=== PATIENT | female | born 1980 | race African-American/Black ===

== ENCOUNTER 2016-06-22 14:10 | Emergency (ER) | payer MEDICAID ==
[~2016-06-22] VITALS: Ht 170.2 cm; Wt 66.0 kg
[~2016-06-22 14:10] MED LIST: Albuterol; PRO AIR; Q VAR; QVAR80 IH
[2016-06-22 14:26] VITALS: BP 108/50
== END 2016-06-22 15:07 | disposition home or self-care (01) ==
LOC: ER 15:01
DX: R05 Cough (principal); J45.909 Unspecified asthma, uncomplicated; Z91.012 Allergy to eggs; Z91.018 Allergy to other foods; Z79.899 Other long term (current) drug therapy; Z98.890 Other specified postprocedural states
CPT/HCPCS: 99283

== ENCOUNTER 2016-11-15 10:58 | Emergency (ER) | payer MEDICAID ==
[~2016-11-15] VITALS: Ht 170.2 cm; Wt 68.0 kg
[2016-11-15] MEDS ORDERED: IPRATROPIUM BROMIDE (0.02%) 0.5MG/2.5ML NEB HHN ONE (12:15)
[2016-11-15] MEDS ORDERED: METHYLPREDNISOLONE SOD SUCC 40 MG/ML VIAL IM ONE (12:15)
[2016-11-15] MEDS ORDERED: IPRATROPIUM/ALBUTEROL 0.5-3(2.5)MG/3ML NEB HHN ONE (12:45)
[2016-11-15 13:59] VITALS: BP 114/57
== END 2016-11-15 15:09 | disposition home or self-care (01) ==
LOC: ER 14:38
DX: J45.909 Unspecified asthma, uncomplicated (principal); F12.10 Cannabis abuse, uncomplicated; Z91.012 Allergy to eggs; Z91.010 Allergy to peanuts; Z91.013 Allergy to seafood; Z91.018 Allergy to other foods
CPT/HCPCS: 71010; 81025; 96372; 99284; J2920; Z7610; J7620

== ENCOUNTER 2017-01-29 11:43 | Emergency (ER) | payer MEDICAID ==
[~2017-01-29] VITALS: Ht 170.2 cm; Wt 59.0 kg
[2017-01-29] MEDS ORDERED: ALBUTEROL (0.083%) 2.5MG/3ML NEB HHN STA ×2 (13:28→14:32)
[2017-01-29] MEDS ORDERED: METHYLPREDNISOLONE SOD SUCC 125 MG/2 ML VIAL IV STA (13:28)
[2017-01-29] MEDS ORDERED: IPRATROPIUM BROMIDE (0.02%) 0.5MG/2.5ML NEB HHN STA ×2 (13:28→14:32)
[2017-01-29] MEDS ORDERED: SODIUM CHLORIDE 0.9% 1,000 ML IV ONE (13:30)
[2017-01-29 15:55] VITALS: BP 102/54
== END 2017-01-29 15:55 | disposition home or self-care (01) ==
LOC: ER 12:53
DX: J45.901 Unspecified asthma with (acute) exacerbation (principal); K21.9 Gastro-esophageal reflux disease without esophagitis; Z91.012 Allergy to eggs; F12.10 Cannabis abuse, uncomplicated
CPT/HCPCS: 71010; 81025; 94640; 99284; J2930; J7030; J7611; Z7610

== ENCOUNTER 2017-02-15 14:11 | Emergency (ER) | payer MEDICAID ==
[~2017-02-15] VITALS: Ht 170.2 cm; Wt 73.0 kg
[2017-02-15] MEDS ORDERED: PREDNISONE 20MG TABLET PO STA (17:41)
[2017-02-15] MEDS ORDERED: ALBUTEROL (0.083%) 2.5MG/3ML NEB HHN STA (17:41)
[2017-02-15] MEDS ORDERED: IPRATROPIUM BROMIDE (0.02%) 0.5MG/2.5ML NEB HHN STA (17:41)
[2017-02-15 18:47] VITALS: BP 128/73
== END 2017-02-15 18:48 | disposition home or self-care (01) ==
LOC: ER 14:53
DX: J45.901 Unspecified asthma with (acute) exacerbation (principal); J20.9 Acute bronchitis, unspecified; K21.9 Gastro-esophageal reflux disease without esophagitis; F12.10 Cannabis abuse, uncomplicated; Z98.890 Other specified postprocedural states; Z91.012 Allergy to eggs; Z91.013 Allergy to seafood; Z91.018 Allergy to other foods
CPT/HCPCS: 94640; 99283; J7512; J7611

== ENCOUNTER 2024-05-02 13:15 | Emergency (ER) | payer MEDICAID ==
[~2024-05-02] VITALS: Ht 170.2 cm; Wt 67.0 kg
[2024-05-02 13:17] VITALS: PULSE 90; O2SAT 98
[2024-05-02 13:35] VITALS: BP 115/71; RESP 16; TEMP 36.9; O2SAT 98
[2024-05-02] MEDS ORDERED: D-ME473S50 PO (14:49)
[2024-05-02] MEDS ORDERED: ALBU18HF2 IH (14:49)
[2024-05-02] MEDS ORDERED: AMOX1TAB16 MT (14:49)
[2024-05-02] MEDS ORDERED: DOXY100T2 MT (14:49)
== END 2024-05-02 14:56 | disposition home or self-care (01) ==
LOC: ER 13:15
DX: J18.9 Pneumonia, unspecified organism (principal); J98.4 Other disorders of lung; J45.909 Unspecified asthma, uncomplicated; K21.9 Gastro-esophageal reflux disease without esophagitis; F12.90 Cannabis use, unspecified, uncomplicated; F10.90 Alcohol use, unspecified, uncomplicated; Z98.890 Other specified postprocedural states; Z79.51 Long term (current) use of inhaled steroids; Y90.9 Presence of alcohol in blood, level not specified
CPT/HCPCS: 71045; 99283

== ENCOUNTER 2024-09-12 20:48 | Emergency (ER) | payer MEDICAID ==
[~2024-09-12] VITALS: Ht 177.8 cm; Wt 71.0 kg
[~2024-09-12 20:48] MED LIST changes: +ALBU18HF2 IH; +AMOX1TAB16 MT; +D-ME473S50 PO; +DOXY100T2 MT
[2024-09-12 21:27] VITALS: O2SAT 99
[2024-09-13] MEDS ORDERED: ACETAMINOPHEN 325MG TABLET PO ONE (00:15)
[2024-09-13] MEDS: PREDNISONE 20MG TABLET PO ONE (00:55)
[2024-09-13] MEDS: FAMOTIDINE 20MG TABLET PO ONE (00:55)
[2024-09-13] MEDS: DIPHENHYDRAMINE 25MG CAPSULE PO ONE (00:55)
[2024-09-13] MEDS ORDERED: P20 MT (02:08)
[2024-09-13 02:58] VITALS: BP 96/69; PULSE 66; RESP 13; TEMP 36.7; O2SAT 99
== END 2024-09-13 03:00 | disposition home or self-care (01) ==
LOC: ER 20:48
DX: L23.9 Allergic contact dermatitis, unspecified cause (principal); J45.909 Unspecified asthma, uncomplicated; F12.90 Cannabis use, unspecified, uncomplicated; Z79.899 Other long term (current) drug therapy
CPT/HCPCS: 99284; Q0163; J7512